=== PATIENT | female | born 1955 | race Caucasian/White ===

== ENCOUNTER 2018-12-28 03:24 | Inpatient (IN) | payer MEDICARE, BC, OTHER ==
[2018-12-28] MEDS: SOD CHLORIDE 0.9% 500 ML IV (03:30)
[2018-12-28 04:00] LABS: ADD MAN DIFF? NO
[2018-12-28 04:08] LABS: BASOPHILS % 0.4 % (0.0-2.0); EOSINOPHILS # 0.1 10^3/ul (0.0-0.5); EOSINOPHILS % 1.1 % (0.0-7.0); HEMATOCRIT 36.1 % (37.0-47.0); HEMOGLOBIN 11.9 g/dl (12.0-16.0); LYMPHOCYTES % 14.5 % (15.0-51.0); MEAN CORPUSCULAR HEMOGLOBIN 31.7 pg (29.0-33.0); MEAN CORPUSCULAR VOLUME 96.3 fl (82.0-101.0); MEAN PLATELET VOLUME 9.7 fl (7.4-10.4); MONOCYTE # 0.6 10^3/ul (0.3-0.9); NEUTROPHIL # 5.2 10^3/ul (1.6-7.5); NEUTROPHILS % 73.9 % (39.0-77.0); PLATELET COUNT 290 10^3/UL (140-415); RED BLOOD COUNT 3.75 10^6/ul (4.20-5.40); RED CELL DISTRIBUTION WIDTH 11.9 % (11.5-14.5)
[2018-12-28] MEDS: SODIUM CHLORIDE 0.9% 1L BAG IV* (04:13)
[2018-12-28] MEDS: CEFEPIME 2GM/50 ML (PMX) 50 ML IVPB (04:13)
[2018-12-28 04:28] LABS: ALANINE AMINOTRANSFERASE 33 IU/L (13-69); ALBUMIN 3.7 g/dl (3.3-4.9); ALBUMIN/GLOBULIN RATIO 1.02; ALKALINE PHOSPHATASE 76 IU/L (42-121); ANION GAP 5 (5-13); ASPARTATE AMINO TRANSFERASE 44 IU/L (15-46); BILIRUBIN,INDIRECT 0.3 mg/dl (0-1.1); BILIRUBIN,TOTAL 0.3 mg/dl (0.2-1.3); BLOOD UREA NITROGEN 16 mg/dl (7-20); CALCIUM 8.5 mg/dl (8.4-10.2); CARBON DIOXIDE 37 mmol/L (21-31); CHLORIDE 89 mmol/L (97-110); CREATININE 0.61 mg/dl (0.44-1.00); Estimated GFR > 60 mL/min (>60); GLUCOSE 154 mg/dl (70-220); POTASSIUM 3.5 mmol/L (3.5-5.1); SODIUM 131 mmol/L (135-144); TOTAL PROTEIN 7.3 g/dl (6.1-8.1)
[2018-12-28 04:33] LABS: ACETAMINOPHEN < 10.0 ug/ml (10.0-30.0); ADD UMIC NO; SALICYLATE < 1.0 mg/dl (5.0-30.0); UR ASCORBIC ACID NEGATIVE (NEGATIVE); UR BILIRUBIN (Dip) NEGATIVE (NEGATIVE); UR BLOOD (Dip) NEGATIVE (NEGATIVE); UR CLARITY CLEAR (CLEAR); UR COLOR YELLOW (YELLOW); UR GLUCOSE (Dip) NEGATIVE (NEGATIVE); UR KETONES (Dip) TRACE mg/dL (NEGATIVE); UR LEUKOCYTE ESTERASE (Dip) NEGATIVE Leu/ul (NEGATIVE); UR NITRITE (Dip) NEGATIVE (NEGATIVE); UR SPECIFIC GRAVITY (Dip) 1.015 (1.003-1.030); UR TOTAL PROTEIN (Dip) NEGATIVE (NEGATIVE); UR UROBILINOGEN (Dip) NEGATIVE (NEGATIVE)
[2018-12-28 04:34] LABS: ETHANOL < 10.0 mg/dl (0-0)
[2018-12-28 04:38] LABS: INR 0.89; PARTIAL THROMBOPLASTIN TIME 26.4 Sec (23.0-35.0); PROTIME 12.2 Sec (11.9-14.9)
[2018-12-28 04:39] LABS: TROPONIN-I < 0.012 ng/ml (0.000-0.120)
[2018-12-28] MEDS: VANCOMYCIN 1 GM (PMX) 250 ML IVPB (04:39)
[2018-12-28 04:52] LABS: AMPHETAMINE/METHAMPHETAMINE Negative (NEGATIVE); BARBITURATES Negative (NEGATIVE); BENZODIAZEPINES Negative (NEGATIVE); CANNABINOIDS Negative (NEGATIVE); COCAINE Negative (NEGATIVE); OPIATES Negative (NEGATIVE)
[2018-12-28 05:38] LABS: LACTIC ACID 1.4 mmol/L (0.5-2.0)
[2018-12-28] MEDS ORDERED: ONDANSETRON 4 MG INJ IV ×2 (06:00→07:00)
[2018-12-28] MEDS ORDERED: NACL 0.9% 3 ML SYG IV (07:00)
[2018-12-28] MEDS ORDERED: ACETAMINOPHEN 650 MG SUPP PR (07:00)
[2018-12-28 08:01] LABS: LACTIC ACID 1.3 mmol/L (0.5-2.0)
[2018-12-28 08:35] LABS: SODIUM,URINE RANDOM 121 mmol/L (30-90)
[2018-12-28 09:24] LABS: AADO2 Arterial 59.6 mmHg (7.0-24.0); Allen Test ACCEPTAB; Arterial Base Excess 5.6 mmol/L (-3.0-3); Arterial Blood Gas Oxygen Sat 94.4 mmHG (95.0-98.0); Arterial COHb 0.1 % (0.0-3.0); Arterial Fraction of Oxyhgb 94.1 % (93.0-99.0); Arterial HCO3 31.2 mmol/L (22.0-26.0); Arterial MetHb 0.2 % (0.0-1.5); Arterial pCO2 49.5 mmhg (35-45); MODE NASAL CANNULA; Site Right Radial
[2018-12-28] MEDS: FAMOTIDINE 20 MG INJ IV ×2 (09:33→21:06)
[2018-12-28] MEDS: DEXTROSE 5%-0.45% NACL 1,000 ML IV ×2 (09:33→16:58)
[2018-12-28] MEDS: HEPARIN 5,000 UNIT/1 ML VIAL SC ×2 (09:40→21:08)
[2018-12-28] MEDS: METHYLPREDNISOLONE 40 MG INJ IV ×2 (13:39→21:06)
[2018-12-28] MEDS: HYDROCODONE/APAP (5/325) TAB GTB (13:39)
[2018-12-28] MEDS: CEFTRIAXONE 1 GM/50 ML (PMX) 50 ML IVPB (13:39)
[2018-12-28] MEDS: AMLODIPINE 5 MG TAB PO (13:46)
[2018-12-28] MEDS: NYSTATIN 30 GM POWDER BTL TOP (21:10)
[2018-12-28] MEDS: ACETAMINOPHEN 325 MG TAB PO (21:10)
[2018-12-29] MEDS: DEXTROSE 5%-0.45% NACL 1,000 ML IV ×3 (03:03→21:59)
[2018-12-29] MEDS: METHYLPREDNISOLONE 40 MG INJ IV ×3 (06:31→21:22)
[2018-12-29 06:50] LABS: ADD MAN DIFF? NO
[2018-12-29 06:58] LABS: WHITE BLOOD COUNT 8.3 10^3/ul (4.8-10.8)
[2018-12-29 06:58] LABS: HEMOGLOBIN 12.6 g/dl (12.0-16.0); LYMPHOCYTES # 0.7 10^3/ul (0.8-2.9); LYMPHOCYTES % 8.2 % (15.0-51.0); MEAN CORPUSCULAR HEMOGLOBIN 30.7 pg (29.0-33.0); MEAN CORPUSCULAR HGB CONC 31.5 g/dl (32.0-37.0); MEAN CORPUSCULAR VOLUME 97.6 fl (82.0-101.0); MEAN PLATELET VOLUME 10.2 fl (7.4-10.4); MONOCYTE # 0.3 10^3/ul (0.3-0.9); MONOCYTES % 3.8 % (0.0-11.0); NEUTROPHIL # 7.3 10^3/ul (1.6-7.5); NEUTROPHILS % 87.6 % (39.0-77.0); PLATELET COUNT 338 10^3/UL (140-415); RED CELL DISTRIBUTION WIDTH 12.2 % (11.5-14.5)
[2018-12-29 07:24] LABS: ALANINE AMINOTRANSFERASE 33 IU/L (13-69); ALBUMIN 3.8 g/dl (3.3-4.9); ALBUMIN/GLOBULIN RATIO 0.97; ALKALINE PHOSPHATASE 95 IU/L (42-121); ANION GAP 6 (5-13); ASPARTATE AMINO TRANSFERASE 38 IU/L (15-46); BILIRUBIN,INDIRECT 0.3 mg/dl (0-1.1); BILIRUBIN,TOTAL 0.3 mg/dl (0.2-1.3); BLOOD UREA NITROGEN 7 mg/dl (7-20); CARBON DIOXIDE 36 mmol/L (21-31); CHLORIDE 99 mmol/L (97-110); CHOL/HDL RATIO 4.1 RATIO; CHOLESTEROL 186 mg/dl (100-200); CREATININE 0.51 mg/dl (0.44-1.00); Estimated GFR > 60 mL/min (>60); GLUCOSE 125 mg/dl (70-220); HDL CHOLESTEROL 45 mg/dl (35-98); LDL CHOLESTEROL,CALCULATED 125 mg/dl; MAGNESIUM 2.2 mg/dl (1.7-2.5); POTASSIUM 4.2 mmol/L (3.5-5.1); SODIUM 141 mmol/L (135-144); TOTAL PROTEIN 7.7 g/dl (6.1-8.1); TRIGLYCERIDES 80 mg/dl (0-149)
[2018-12-29 07:53] LABS: THYROID STIMULATING HORMONE 0.494 MIU/L (0.465-4.680)
[2018-12-29 08:00] LABS: HEMOGLOBIN A1C 5.5 % (0-5.9)
[2018-12-29] MEDS: HYDROCODONE/APAP (5/325) TAB GTB ×3 (08:13→19:02)
[2018-12-29] MEDS: FAMOTIDINE 20 MG INJ IV ×2 (08:13→21:27)
[2018-12-29] MEDS: AMLODIPINE 5 MG TAB PO (08:13)
[2018-12-29] MEDS: HEPARIN 5,000 UNIT/1 ML VIAL SC ×2 (08:19→21:54)
[2018-12-29] MEDS: NYSTATIN 30 GM POWDER BTL TOP ×2 (08:21→21:30)
[2018-12-29] MEDS: CEFTRIAXONE 1 GM/50 ML (PMX) 50 ML IVPB (14:07)
[2018-12-30] MEDS: DEXTROSE 5%-0.45% NACL 1,000 ML IV ×4 (03:47→18:58)
[2018-12-30] MEDS: METHYLPREDNISOLONE 40 MG INJ IV ×3 (06:07→21:11)
[2018-12-30 06:11] LABS: ADD MAN DIFF? NO
[2018-12-30 06:13] LABS: HEMATOCRIT 38.7 % (37.0-47.0); HEMOGLOBIN 12.1 g/dl (12.0-16.0); LYMPHOCYTES # 0.7 10^3/ul (0.8-2.9); LYMPHOCYTES % 7.4 % (15.0-51.0); MEAN CORPUSCULAR HEMOGLOBIN 30.6 pg (29.0-33.0); MEAN CORPUSCULAR HGB CONC 31.3 g/dl (32.0-37.0); MEAN PLATELET VOLUME 9.7 fl (7.4-10.4); MONOCYTE # 0.4 10^3/ul (0.3-0.9); MONOCYTES % 4.2 % (0.0-11.0); NEUTROPHIL # 8.7 10^3/ul (1.6-7.5); NEUTROPHILS % 87.9 % (39.0-77.0); PLATELET COUNT 355 10^3/UL (140-415); RED BLOOD COUNT 3.95 10^6/ul (4.20-5.40); RED CELL DISTRIBUTION WIDTH 12.6 % (11.5-14.5)
[2018-12-30 06:13] LABS: WHITE BLOOD COUNT 9.9 10^3/ul (4.8-10.8)
[2018-12-30 06:47] LABS: ANION GAP 3 (5-13); BLOOD UREA NITROGEN 9 mg/dl (7-20); CALCIUM 9.2 mg/dl (8.4-10.2); CARBON DIOXIDE 39 mmol/L (21-31); CHLORIDE 98 mmol/L (97-110); CREATININE 0.53 mg/dl (0.44-1.00); Estimated GFR > 60 mL/min (>60); GLUCOSE 131 mg/dl (70-220); SODIUM 140 mmol/L (135-144)
[2018-12-30] MEDS: HYDROCODONE/APAP (5/325) TAB GTB ×2 (08:17→17:52)
[2018-12-30] MEDS: HEPARIN 5,000 UNIT/1 ML VIAL SC ×2 (08:18→20:45)
[2018-12-30] MEDS: AMLODIPINE 5 MG TAB PO (08:18)
[2018-12-30] MEDS: FAMOTIDINE 20 MG INJ IV ×2 (08:18→20:45)
[2018-12-30] MEDS: NYSTATIN 30 GM POWDER BTL TOP ×2 (08:18→20:42)
[2018-12-30] MEDS: CEFTRIAXONE 1 GM/50 ML (PMX) 50 ML IVPB (12:50)
[2018-12-31] MEDS: HYDROCODONE/APAP (5/325) TAB GTB ×2 (01:54→21:28)
[2018-12-31] MEDS: DEXTROSE 5%-0.45% NACL 1,000 ML IV ×2 (01:54→04:57)
[2018-12-31] MEDS: METHYLPREDNISOLONE 40 MG INJ IV (09:04)
[2018-12-31] MEDS: AMLODIPINE 10 MG TAB PO (09:05)
[2018-12-31] MEDS: NYSTATIN 30 GM POWDER BTL TOP ×2 (09:05→21:43)
[2018-12-31] MEDS: FAMOTIDINE 20 MG INJ IV ×2 (09:05→21:28)
[2018-12-31] MEDS: HEPARIN 5,000 UNIT/1 ML VIAL SC ×2 (09:15→21:29)
[2018-12-31] MEDS: CEFTRIAXONE 1 GM/50 ML (PMX) 50 ML IVPB (12:50)
[2018-12-31] MEDS: ALBUTEROL/IPRATROPIUM (NEB) 3 ML AMP HHN (22:05)
[2019-01-01] MEDS: ALBUTEROL/IPRATROPIUM (NEB) 3 ML AMP HHN (00:13)
[2019-01-01] MEDS: METHYLPREDNISOLONE 125 MG INJ IV (01:02)
[2019-01-01] MEDS: predniSONE 20 MG TAB PO (08:53)
[2019-01-01] MEDS: FAMOTIDINE 20 MG INJ IV (08:54)
[2019-01-01] MEDS: AMLODIPINE 10 MG TAB PO (08:54)
[2019-01-01] MEDS: NYSTATIN 30 GM POWDER BTL TOP (08:55)
[2019-01-01] MEDS: HEPARIN 5,000 UNIT/1 ML VIAL SC (09:03)
[2019-01-01] MEDS: METOPROLOL 50 MG TAB PO (12:19)
[2019-01-01] MEDS: CEFTRIAXONE 1 GM/50 ML (PMX) 50 ML IVPB (12:30)
[2019-01-01] MEDS: LABETALOL HCL 20MG INJ IV (15:49)
[2019-01-01] MEDS ORDERED: LABETALOL HCL 20MG INJ IV (16:00)
== END 2019-01-01 16:32 | DRG 190 ==
LOC: E/R 03:24 → TEL 05:37
PROVIDERS: Internal Medicine
DX: J44.1 Chronic obstructive pulmonary disease with (acute) exacerbation (principal); J96.91 Respiratory failure, unspecified with hypoxia; E87.1 Hypo-osmolality and hyponatremia; G93.49 Other encephalopathy; G30.9 Alzheimer's disease, unspecified; F02.80 Dementia in other diseases classified elsewhere, unspecified severity, without behavioral disturbance, psychotic disturbance, mood disturbance, and anxiety; I10 Essential (primary) hypertension; G60.9 Hereditary and idiopathic neuropathy, unspecified; G25.81 Restless legs syndrome; Z72.0 Tobacco use
CPT/HCPCS: 36415; 36600; 70450; 70551; 71045; 80048; 80053; 80061; 80307; 81003; 82803; 83036; 83605; 83735; 84300; 84443; 84484; 85025; 85610; 85730; 87040-91; 87081; 87086; 92526; 92610; 93005; 94640; 94664; 96365; 96368; 97162; 97530; 99285-25